=== PATIENT | female | born 1990 | race American Indian/Alaskan Native ===

== ENCOUNTER 2018-07-20 11:45 | Emergency (ER) | payer SELFPAY ==
[2018-07-20 11:56] VITALS: BP 117/68; PULSE 106; RESP 18; TEMP 97.8; O2SAT 98
--- NOTE | 2018-07-20 12:20 | C.PDOC ---
History Of Present Illness 28 y/o female presents for medical evaluation of right shoulder pain x 2 weeks. Patient states that she developed it while she was in [place] and was seen by a local clinician who stated that she had "gas" and prescribed Antacids. She denies any relief with Antacids. She admits to pain around the right shoulder from the anterior chest to the posterior back (subscapular area). She denies use of pain meds or ice therapy. She states that the pain is worse in the morning and with movement (when she takes a deep breath). She continues to exercise with weights despite the pain. She denies any trauma, headache, dizziness, paresthesias, SOB, fever, chills, N/V, and abdominal pain. Time Seen by Provider: 07/20/18 12:05 Chief Complaint (Nursing): Upper Extremity Problem/Injury History Per: Patient History/Exam Limitations: no limitations Onset/Duration Of Symptoms: Persistent Current Symptoms Are (Timing): Still Present Quality: Aching Severity: Moderate Exacerbating Factor(s): Movement Recent travel outside of the [facility]: Yes (returned from [place]) Past Medical History Reviewed: Historical Data, Nursing Documentation, Vital Signs Vital Signs: Last Vital Signs Temp 97.8 F 07/20/18 11:55 Pulse 106 H 07/20/18 11:55 Resp 18 07/20/18 11:55 BP 117/68 07/20/18 11:55 Pulse Ox 98 07/20/18 11:55 - Medical History PMH: Anxiety, Asthma Surgical History: No Surg Hx Family History: States: Diabetes, Hypertension - Social History Hx Tobacco Use: No Hx Alcohol Use: No Hx Substance Use: No - Immunization History Hx Tetanus Toxoid Vaccination: No Hx Influenza Vaccination: No Hx Pneumococcal Vaccination: No Review Of Systems Constitutional: Negative for: Fever, Chills, Sweats Cardiovascular: Negative for: Palpitations, Light Headedness Respiratory: Negative for: Cough Gastrointestinal: Negative for: Nausea, Vomiting, Abdominal Pain Musculoskeletal: Positive for: Shoulder Pain, Back Pain Skin: Negative for: Rash, Bruising Neurological: Negative for: Headache, Dizziness Physical Exam - Physical Exam Appears: Well, Non-toxic, No Acute Distress Skin: Normal Color, Warm, Dry, Rash Head: Atraumatic, Normacephalic, No Tenderness Neck: Normal ROM, Supple Lymphatic: No Adenopathy Chest: Symmetrical Cardiovascular: Rhythm Regular Respiratory: Normal Breath Sounds, No Wheezing Gastrointestinal/Abdominal: Soft, No Tenderness Back: No CVA Tenderness Extremity: Normal ROM, Capillary Refill (less than 2 seconds), No Swelling (Right shoulder) Extremity: Right: Bony Point Tenderness (right suprascapula) Neurological/Psych: Oriented x3, Normal Speech, Normal Cognition, Normal Sensation Gait: Steady ED Course And Treatment O2 Sat by Pulse Oximetry: 98 Disposition Counseled Patient/Family Regarding: Diagnosis, Need For Followup, Rx Given - Disposition Referrals: [facility] [Outside] Disposition: HOME/ ROUTINE Disposition Time: 12:20 Condition: STABLE Additional Instructions: TINA URRUTIA, thank you for letting us take care of you today. Your provider was Chong Isaacs MD/Alejandro Poe PA-C and you were treated for RIGHT SHOULDER PAIN/BACK PAIN. The emergency medical care you received today was directed at your acute symptoms. If you were prescribed any medication, please fill it and take as directed. It may take several days for your symptoms to resolve. Return to the Emergency Department if your symptoms worsen, do not improve, or if you have any other problems. Please contact your doctor or call one of the physicians/clinics you have been referred to that are listed on the Patient Visit Information form that is included in your discharge packet. Bring any paperwork you were given at discharge with you along with any medications you are taking to your follow up visit. Our treatment cannot replace ongoing medical care by a primary care provider outside of the emergency department. Thank you for allowing the [facility] team to be part of your care today. Prescriptions: Ibuprofen [Motrin] 600 mg PO TID PRN #30 tab PRN Reason: Pain, Moderate (4-7) Instructions: Shoulder Sprain (DC) - Clinical Impression Clinical Impression: Sprain of right shoulder - PA / BLOOD BANK TECHNICIAN / Resident Statement MD/DO has reviewed & agrees with the documentation as recorded.
== END 2018-07-20 12:30 | disposition home or self-care (01) ==
LOC: C.ER 11:45
DX: S43.401A Unspecified sprain of right shoulder joint, initial encounter (principal); X58.XXXA Exposure to other specified factors, initial encounter